=== PATIENT | male | born 1985 | race Caucasian/White ===

== ENCOUNTER 2016-06-12 14:43 | Emergency (ER) | payer BC ==
[2016-06-12 15:12] VITALS: TEMP 98.1
[2016-06-12] MEDS ORDERED: PROPARACAINE 0.5% OPHTH DROPS 15 ML BTL LEFT EYE STA (15:19)
[2016-06-12] MEDS ORDERED: BACITRACIN LEFT EYE STA (16:12)
[2016-06-12] MEDS ORDERED: DIPH,PERTUS(ACELL)TETVAC-LF 0.5 ML VIAL IM ONE (16:12)
--- NOTE | 2016-06-12 16:30 | ED ---
General Adult HPI - General Chief complaint: Wound/Laceration Stated complaint: fell/split eye lid open Time Seen by Provider: 06/12/16 15:16 Source: patient, RN notes reviewed Mode of arrival: ambulatory Limitations: no limitations - History of Present Illness Initial comments: Chief complaint history of present illness a 31-year-old male who presents emergency room because of a laceration through his left upper eyelid. It involves the eyelid margin. The patient was at a local clinic where efforts are made to use Dermabond. Similar Dermabond got up under the lower eyelid now causing pain. Patient's last tetanus shot was over 10 years ago. This will be updated. Patient has a scratchy sensation. - Related Data Home Medications Medication Instructions Recorded Confirmed Cephalexin [Keflex] 500 mg PO TID 06/12/16 06/12/16 Polymyxin B-Trimethoprim Ophth 1 drops LEFT EYE Q4H 06/12/16 06/12/16 [Polytrim Opthalmic] Allergies Allergy/AdvReac Type Severity Reaction Status Date / Time No Known Allergies Allergy Verified 06/12/16 15:54 Review of Systems ROS Statement: Those systems with pertinent positive or pertinent negative responses have been documented in the HPI. Review of systems. No complaints other than discomfort to the eye after a laceration that happened approximately 2 AM this morning and subsequently having it repaired with Dermabond and some of the glue got under the eyelid causing irritation with blinking. Patient denies any significant medical problems. No significant surgeries. Family history includes cancers of prostate breast skin leukemia. Patient denies any ALLERGIES. ROS Other: All systems not noted in ROS Statement are negative. Past Medical History Past Medical History: No Reported History History of Any Multi-Drug Resistant Organisms: None Reported Past Surgical History: Tonsillectomy Past Psychological History: No Psychological Hx Reported Smoking Status: Former smoker Past Alcohol Use History: Occasional Past Drug Use History: None Reported General Exam - General Exam Comments Initial Comments: General: The patient is awake and alert, in no distress, and does not appear acutely ill. Vital signs show temperature 98.1 pulse 83 over story 16 pulse ox on percent room air blood pressure 126/72. Mildly elevated systolic noted. Patient with following up with his family physician told me be referred. Eye: Pupils are equal, round and reactive to light, extra-ocular movements are intact ; there is normal conjunctiva bilaterally. Discomfort to the left eye. He has a laceration to the upper eyelid margin. Some of the eyelashes have been removed traumatically. The patient was at a local urgent care clinic where efforts are made to Steri-Strip the eye closed. Some of the glue got in under the eye causing pain. Patient denies any change in visual acuity. Right eye 20 /15 left eye 20/30 both eyes together 20/20. Proparacaine was used to numb the eye. And using fine forceps the glue was removed from under the eyelid. Several eyelashes had been inverted rubbing on the eyeball. Floor seen showed mild scratching to the Mina surface. No ulcer noted. No other foreign bodies noted on the lid on exam. Both were everted. The wound was not closed with a Steri-Strip. It remained open despite efforts to close it with the Dermabond. The patient be referred to an eye surgeon for repair of his upper eyelid. Limitations: no limitations Course Vital Signs 06/12/16 15:07 Temperature 98.1 F Pulse Rate 83 Respiratory 16 Rate Blood Pressure 126/72 O2 Sat by Pulse 100 Oximetry Medical Decision Making - Medical Decision Making The patient had the Dermabond glue removed from the eyelid. The eye was examined with fluorescein a black lamp on the slit lamp. There is a corneal abrasion. 25 minutes spent removing the Dermabond from the eyelid and the inner upper lid. The patient be referred onto forklift material handler for repair of the upper eyelid injurylaceration. tetanus shot updated. The patient will have bacitracin ointment put in the eye for comfort and control infection. The patient will be sent to [facility] emergency room for evaluation by ophthalmology an ocular plastic surgeon for repair of a laceration through the left upper lid margin. Patient is stable to go with family will drive him there. Patient was told to not eat or drink anything between now and when he sees the ER and I surgeon. Disposition Clinical Impression: Eyelid laceration Disposition: OTHER INSTITUTION NOT DEFINED Condition: Serious - Out of Hospital Transfer - Req. Specs Out of Hospital Transfer - Requested Specifics: Other Emergency Center ( [facility])
[2016-06-12 18:12] VITALS: BP 162/87; PULSE 86; RESP 18
== END 2016-06-12 18:11 | disposition other institution (70) ==
LOC: EC 14:43
DX: S01.112A Laceration without foreign body of left eyelid and periocular area, initial encounter (principal); T15.02XA Foreign body in cornea, left eye, initial encounter; W45.8XXA Other foreign body or object entering through skin, initial encounter; Z87.891 Personal history of nicotine dependence; Z23 Encounter for immunization
CPT/HCPCS: 90471; 90715; 99284